=== PATIENT | male | born 1980 ===

== ENCOUNTER 2023-09-23 02:35 | Emergency (ER) | payer MEDICARE, MEDICAID ==
[~2023-09-23] VITALS: Ht 170.2 cm; Wt 70.0 kg
[2023-09-23 03:31] LABS: Basophils # (auto) 0 10 ^3/uL (0-0.2); Basophils % (auto) 0.5 % (0.0-2.0); Eosinophils # (auto) 0 10 ^3/uL (0-0.8); Eosinophils % (auto) 0.6 % (0.0-7.0); Hematocrit 38.3 % (41.0-53.0); Hemoglobin 12.9 g/dL (13.5-17.5); Lymphocytes % (auto) 36.2 % (10.0-50.0); Mean Corpuscular Hemoglobin 30.5 pg (28.0-32.0); Mean Corpuscular Hgb Conc. 33.8 g/dL (32.0-36.0); Mean Corpuscular Volume 90.3 fL (80.0-100.0); Monocytes # (auto) 0.5 10 ^3/uL (0-1.3); Monocytes % (auto) 9.4 % (0.0-12.0); Neutrophils % (auto) 53.3 % (37.0-80.0); Nucleated Red Blood Cells % 0.1 %; Red Blood Cells 4.24 10^6/uL (4.5-5.90); Red Cell Distribution Width 14.2 % (11.8-14.3); White Blood Cell 5.6 10^3/uL (4.4-10.8)
[2023-09-23 04:04] LABS: Alanine Aminotransferase 13 U/L (7-40); Albumin 4.2 g/dL (3.2-4.8); Alkaline Phosphatase 77 U/L (46-116); Anion Gap 11 (5-15); Aspartate Aminotransferase 19 U/L (13-40); BUN/Creatinine Ratio 7.6 (10.0-20.0); Bilirubin, Total 0.3 mg/dL (0.2-1.0); Blood Urea Nitrogen 6 mg/dL (9-23); Calcium 8.7 mg/dL (8.7-10.4); Carbon Dioxide 23 mmol/L (20-30); Chloride 106 mmol/L (98-107); Glucose 94 mg/dL (74-106); Potassium 3.4 mmol/L (3.5-5.1); Sodium 140 mmol/L (136-145); Total Protein 7.1 g/dL (5.7-8.2)
[2023-09-23 04:19] VITALS: PULSE 84; RESP 18; O2SAT 97
[2023-09-23 05:39] VITALS: PULSE 83; RESP 17; O2SAT 98
[2023-09-23] MEDS ORDERED: levETIRAcetam 1000 mg/100ml 100 ML IV ONE (06:15)
[2023-09-23] MEDS ORDERED: PHENYTOIN SODIUM 100 MG CAP PO ONE (06:30)
[2023-09-23 09:21] VITALS: BP 134/86; PULSE 74; RESP 13; TEMP 98.7; O2SAT 95
== END 2023-09-23 09:53 | disposition home or self-care (01) ==
LOC: ER 02:35 → EDBD 02:35 → ER 09:39
DX: R56.9 Unspecified convulsions (principal); R89.2 Abnormal level of other drugs, medicaments and biological substances in specimens from other organs, systems and tissues
CPT/HCPCS: 36415; 80053; 80185; 82542; 85025; 96365; 99285; J1953